=== PATIENT | male | born 1980 | race African-American/Black ===

== ENCOUNTER → 2018-09-06 | Outpatient (CLI) | payer OTHER | LOC: RAD 09:53 | PROVIDERS: ATTEND Specialist | DX: R22.42 Localized swelling, mass and lump, left lower limb (principal) | CPT/HCPCS: 93971 ==

== ENCOUNTER → 2018-10-05 | Outpatient (CLI) | payer OTHER ==
--- NOTE | 2018-10-05 09:34 | Diagnostic Imaging Report ---
EXAM: CT left foot WITHOUT contrast 10/05/2018 8:02 AM INDICATION: Displaced fracture of second metatarsal COMPARISON: None TECHNIQUE: Left foot was scanned utilizing a multidetector helical scanner without administration of IV contrast. Absence of intravenous contrast decreases sensitivity for detection of lymphadenopathy and vascular pathology. Coronal and sagittal reformations were obtained. Routine protocol was performed. IV CONTRAST: None RADIATION DOSE: Total DLP: 112.48 mGy*cm Estimated effective dose: (DLP x 0.014 x size factor) mSv All CT scans are performed using radiation dose reduction techniques. Technical factors are evaluated and adjusted to ensure appropriate moderation of exposure. Automated dose management technology is applied to adjust the radiation dose to minimize exposure while achieving a diagnostic-quality image. COMPLICATIONS: None FINDINGS: Diffuse osteopenia could be due to disuse. Scattered degenerative change. Nondisplaced subacute/chronic appearing nondisplaced fracture through the proximal second metatarsal. This is best seen on coronal image 51 and sagittal image 34 through 36. The proximal second metatarsal is normally aligned with its adjacent cuneiform bone. There is no subluxation or avascular necrosis. No radiopaque foreign body. Mild soft tissue swelling. IMPRESSION: Nondisplaced subacute/chronic appearing nondisplaced fracture through the proximal second metatarsal. The proximal second metatarsal is normally aligned with its adjacent cuneiform bone. There is no subluxation or avascular necrosis. Signed by: Dr. Kirit Parham M.D. on 10/05/2018 9:30 AM
== END ==
LOC: CT 07:46
PROVIDERS: ATTEND Specialist
DX: S92.322D Displaced fracture of second metatarsal bone, left foot, subsequent encounter for fracture with routine healing (principal); S93.622D Sprain of tarsometatarsal ligament of left foot, subsequent encounter